=== PATIENT | female | born 1975 | race Caucasian/White ===

== ENCOUNTER 2016-12-28 14:53 | Emergency (ER) | payer MEDICAID ==
[~2016-12-28] VITALS: Wt 90.0 kg
[2016-12-28] MEDS ORDERED: KETOROLAC 30 MG INJ IM STA (16:18)
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
[2016-12-28] MEDS ORDERED: NAPR-260 PO (17:39)
== END 2016-12-28 18:37 | disposition home or self-care (01) ==
LOC: FTE 14:53
DX: M25.552 Pain in left hip (principal)
CPT/HCPCS: 73510; J1885; 96372